=== PATIENT | male | born 1955 | race Caucasian/White ===

== ENCOUNTER → 2020-05-31 | Outpatient (CLI) | payer MEDICARE ==
--- NOTE | 2020-05-31 09:40 | RAD ---
KNEE RIGHT 3V DATE: 05/31/2020 12:00 AM INDICATION: Reason: FALL / Spl. Instructions: / History: COMPARISON: None. FINDINGS: Bones: There is no evidence of acute fracture or dislocation. Joints: The joint spaces are normal. Small joint effusion. Miscellaneous: Atherosclerotic vascular calcifications IMPRESSION: No acute fracture. Small joint effusion. Electronically signed by: Kyrie Ortiz MD (05/31/2020 9:37 AM) [id number]
--- NOTE | 2020-05-31 09:44 | RAD ---
SHOULDER 2+V LEFT DATE: 05/31/2020 12:00 AM INDICATION: FALL COMPARISON: None. FINDINGS: Bones: There is no evidence of acute fracture or dislocation. Joints: Moderate degenerative changes of the acromioclavicular joint. Glenohumeral joint is congruent. The acromiohumeral distance is not narrowed. Miscellaneous: No abnormal soft tissue calcifications in the shoulder. IMPRESSION: No evidence of acute fracture. Electronically signed by: Kyrie Ortiz MD (05/31/2020 9:41 AM) [id number]
== END | disposition home or self-care (01) ==
LOC: DXRAD 08:28
PROVIDERS: ATTEND Physician Assistant
DX: M19.012 Primary osteoarthritis, left shoulder (principal); M25.461 Effusion, right knee; I70.8 Atherosclerosis of other arteries
CPT/HCPCS: 73030; 73562